=== PATIENT | female | born 1955 | race Caucasian/White ===

== ENCOUNTER 2023-06-05 00:36 | Day surgery (SDC) | payer MEDICARE, SELFPAY ==
[2023-05-19 09:57] VITALS: BMI 23.3
--- NOTE | 2023-06-03 09:27 | SUR.PREOP ---
Patient called regarding upcoming procedure. Voicemail left.
--- NOTE | 2023-06-04 15:07 | PM.HPGS ---
History of Present Illness History of Present Illness Consent: Risks, benefits, and alternatives have been discussed and questions answered. Patient agrees to proceed with procedure. Chief complaint: Polyp of stomach and duodenum Narrative: Luisa Ortiz is a 67 year old female referred because of a history of multiple polyps. She had an EGD in [address] Beckford and was found to have 21 gastric polyps with recommendations repeat in 3 years-pathology reviewed they are fundic gland.? She states she had a colonoscopy in the last [address] Beckford but I do not have the results.? She has a persistent pain in the area the right flank. He has had CT scans and other studies that have not revealed anything abnormal except for some small kidney cyst. She does have a history of herniated discs in fact has a titanium cage in her back. Review of Systems Review of Systems: All systems reviewed & are unremarkable except as noted in HPI and below PMFSH Past Medical History Medical History Chronic right hip pain Colon cancer screening Gastric polyposis Hepatic steatosis Hepatomegaly Social History Social History Smoking status: Never smoker Alcohol intake: current Alcohol use details: Socially Substance use type: does not use Living arrangements: other Additional living arrangements comments: with sp Meds Home Medications and Allergies Home Medications Medication Instructions Recorded Confirmed Type levothyroxine 125 mcg capsule 125 mcg PO DAILY 04/22/23 05/19/23 History sertraline 100 mg tablet 100 mg PO DAILY 04/22/23 05/19/23 History meloxicam 15 mg tablet 15 mg PO DAILY 05/19/23 05/19/23 History Allergies Allergy/AdvReac Type Severity Reaction Status Date / Time latex Allergy Mild Unknown Verified 06/05/23 09:55 Sulfa (Sulfonamide Allergy Mild Hives Verified 06/05/23 09:55 Antibiotics) propoxyphene AdvReac Mild Vomiting Verified 06/05/23 09:55 adhesive tape AdvReac Unknown Unknown Verified 06/05/23 09:55 duloxetine [From Cymbalta] AdvReac Unknown Unknown Verified 06/05/23 09:55 hydrocodone AdvReac Unknown Nausea and Verified 06/05/23 09:55 Vomiting Exam Const: General: alert Orientation/consciousness: patient oriented x3 Resp: Auscultation: clear to auscultation bilaterally Cardio: Rhythm: regular rhythm GI: GI Palp: Yes Soft to palpation and No Tenderness to palpation present (GI) Neuro: General: patient oriented x3 Assessment and Plan Assessment and plan (1) Gastric polyposis: Code(s): K31.7 - Polyp of stomach and duodenum Status: Acute Assessment and Plan: EGD with possible biopsy or dilatation or cautery.
[2023-06-05 09:57] VITALS: BP 111/66; PULSE 65; RESP 16; TEMP 36.6; O2SAT 95
[2023-06-05] MEDS: LACTATED RINGERS 1,000 ML 150 ML IV CONT (10:10)
--- NOTE | 2023-06-05 10:53 | WPDANESEPPF ---
Anes - Initial Pre Proc Eval Procedure: Operation Date: 06/05/23 11:00 Proposed Procedures p Esophagogastroduodenoscopy - Fazal Villegas MD Date/Time: 06/05/23 10:53 Surgeon: Fazal Villegas MD Pre Op Diagnosis: Polyp of stomach and duodenum Patient Data Age: 67 Gender: F Height: 1.63 m Weight: 61.9 kg Last Vital Signs Temp 97.8 F 06/05/23 09:57 Pulse 65 06/05/23 09:57 Resp 16 06/05/23 09:57 BP 111/66 06/05/23 09:57 Pulse Ox 95 06/05/23 09:57 O2 Del Method Room Air 06/05/23 09:57 Allergies Allergy/AdvReac Type Severity Reaction Status Date / Time latex Allergy Mild Unknown Verified 06/05/23 09:55 Sulfa (Sulfonamide Allergy Mild Hives Verified 06/05/23 09:55 Antibiotics) propoxyphene AdvReac Mild Vomiting Verified 06/05/23 09:55 adhesive tape AdvReac Unknown Unknown Verified 06/05/23 09:55 duloxetine [From Cymbalta] AdvReac Unknown Unknown Verified 06/05/23 09:55 hydrocodone AdvReac Unknown Nausea and Verified 06/05/23 09:55 Vomiting Home Medications Medication Instructions Recorded Confirmed Type levothyroxine 125 mcg capsule 125 mcg PO DAILY 04/22/23 05/19/23 History sertraline 100 mg tablet 100 mg PO DAILY 04/22/23 05/19/23 History meloxicam 15 mg tablet 15 mg PO DAILY 05/19/23 05/19/23 History Patient hx anesthesia problems: none Family hx anesthesia problems: none Results Review: All pre-operative results and documents have been reviewed as part of the pre-operative evaluation. [facility] Past Medical History Medical History Chronic right hip pain Colon cancer screening Gastric polyposis Hepatic steatosis Hepatomegaly Social History Social History Smoking status: Never smoker Alcohol intake: current Alcohol use details: Socially Substance use type: does not use Living arrangements: other Additional living arrangements comments: with sp Anes - Eval Final PreProcedure Day of Procedure 06/05/23 10:53 Patient weight: normal Heart: regular rate and rhythm Lungs: clear to auscultation Airway: Mallampati scale class II Neurological: alert and oriented Last oral intake: >/= 8 hours ASA classification: III Emergent: no Anesthetic plan: proceed Anesthesia type and monitoring: general GIVS and standard monitoring Results Review: All pre-operative results and documents have been reviewed as part of the pre-operative evaluation. Informed Consent: The patient's anesthetic plan and its attendant risks and benefits were discussed with the patient/family/POA. Questions were solicited and answers provided to the satisfaction of the patient/family/POA.
[2023-06-05 11:06] VITALS: BP 108/62; PULSE 56; RESP 15; O2SAT 100
[2023-06-05 11:16] VITALS: BP 110/64; PULSE 55; RESP 15; O2SAT 100
[2023-06-05 11:26] VITALS: BP 119/72; PULSE 58; RESP 18; O2SAT 100
== END 2023-06-05 11:35 | disposition home or self-care (01) ==
PROVIDERS: PCP Nurse Practitioner Family; Visit Provider Internal Medicine Gastroenterology
PROC: 0DJ08ZZ Inspection of Upper Intestinal Tract, Via Natural or Artificial Opening Endoscopic (ICD-10-PCS; CPT 43235; principal; 2023-06-05 11:00)
DX: K21.9 Gastro-esophageal reflux disease without esophagitis (principal); K44.9 Diaphragmatic hernia without obstruction or gangrene; K29.70 Gastritis, unspecified, without bleeding
CPT/HCPCS: 43239; 87081; J2704; J7120